=== PATIENT | male | born 2000 | race Caucasian/White ===

== ENCOUNTER 2023-09-19 07:57 | Emergency (ER) | payer SELFPAY ==
[~2023-09-19] VITALS: Ht 175.3 cm; Wt 74.0 kg
[2023-09-19 08:05] VITALS: O2SAT 99
[2023-09-19] MEDS: IBUPROFEN 600MG TABLET PO ONE (09:32)
[2023-09-19] MEDS ORDERED: BENZ1LOZ73 MT (10:40)
[2023-09-19] MEDS ORDERED: IBUP-2029 MT (10:40)
[2023-09-19 10:57] VITALS: BP 121/71; PULSE 74; RESP 16; TEMP 98.5
== END 2023-09-19 10:58 | disposition home or self-care (01) ==
LOC: ER 07:57
DX: J06.9 Acute upper respiratory infection, unspecified (principal); Z20.822 Contact with and (suspected) exposure to COVID-19
CPT/HCPCS: 87426; 87804; 99283